=== PATIENT | female | born 1960 | race Caucasian/White ===

== ENCOUNTER 2017-02-19 17:33 | Emergency (ER) | payer BC, OTHER ==
--- NOTE | 2017-02-19 18:13 | ERNOTE ---
Lower Extremity HPI - Narrative Date of Service: 02/19/17 - General Lower Extremities Pain: ankle: right Time Seen by Provider: 02/19/17 17:49 Source: patient Exam Limitations: no limitations - Immun/Allergies/Home Medications Immunizations: IMMUNIZATION HX Immunizations Up to Date Yes History of Influenza Vaccine Yes Hx Pneumococcal Vaccination No Allergies/Adverse Reactions: Allergies Allergy/AdvReac Type Severity Reaction Status Date / Time adhesive AdvReac Other Verified 02/19/17 17:51 Home Medications: HOME MEDICATIONS Meloxicam [Mobic] 7.5 mg PO DAILY #14 tab 02/19/17 [Last Taken Unknown] Omeprazole 40 mg PO DAILY 02/19/17 [Last Taken Unknown] Sucralfate [Carafate] 1 gm PO QID 02/19/17 [Last Taken Unknown] Tamoxifen Citrate 20 mg PO DAILY 02/19/17 [Last Taken Unknown] - History of Present Illness Narrative: Pt. comes in with c/o R ankle and foot swelling for a week. Pt. denies any injury but has had treatment for Breast CA and multiple recent surgical procedures. Pt. denies any SOB, CP, fever, numbness or tingling. Pt. states that she has been using vicodin, Tylenol, lidocaine rub and heat that makes the pain tolerable but states that ambulation exacerbates the pain. Review of Systems - Review of Systems Constitutional: Present: no symptoms reported. Absent: recent illness, fever, chills, weakness, fatigue, malaise EYE: Present: no symptoms reported ENT: Present: no symptoms reported Respiratory: Present: no symptoms reported. Absent: shortness of breath, cough , wheezing Cardiology: Present: no symptoms reported. Absent: chest pain, palpitations, edema Gastrointestinal/Abdominal: Present: no symptoms reported. Absent: nausea, vomiting, diarrhea, abdominal pain Genitourinary: Present: no symptoms reported Musculoskeletal: Present: joint pain - R ankle, joint swelling - R ankle. Absent: back pain Skin: Present: no symptoms reported. Absent: rash, change in hair/nails Neurological: Present: no symptoms reported. Absent: headache, dizziness/light- headedness, numbness, tingling All Other Systems: All systems neg except as marked - Patient's Past Medical History Patient History - Medical: No pertinent hx Patient History - Cardiac/Respiratory: No pertinent hx Patient History - Cancer: Breast Patient History - Surgical Procedures: Cancer Surgery, Hysterectomy, Other - Social History Living Situations: home Abuse History: No History of abuse Psych History: No pertinent hx Smoking Status: Never smoker Have you smoked in the past 12 months: No Do you dip or chew tobacco: No Smoking Stop Date: 02/19/07 Initiate information on Smoking Cessation: No Alcohol Use: rarely Drug Use: none - Immunizations Immunizations Up to Date: Yes Hx Pneumococcal Vaccination: No History of Influenza Vaccine: Yes Physical Exam - Physical Exam General Appearance: Present: wd/wn, alert, no apparent distress Head Exam: Present: normal inspection, no evidence of injury Eye Exam: Normal inspection: bilateral, PERRL: bilateral, EOMI: bilateral Respiratory: Present: no respiratory distress, normal breath sounds, no accessory muscle use, chest nontender, lungs clear. Absent: crackles, rales, rhonchi, wheezing Cardiovascular/Chest: Present: regular rate, rhythm, no murmur, normal peripheral pulses. Absent: gallop/S3, gallop/S4, friction rub, chest tenderness Extremity Exam: Present: pedal edema - +2 RLE, extremity edema - +2 RLE, other - Dorsal Ankle and foot tenderness and lateral distal fibula. Absent: calf tenderness Neurological Exam: Present: alert, oriented, normal mood/affect, no motor/ sensory deficits Skin Exam: Present: normal color, warm/dry. Absent: pallor, skin rash ED Progress - Date and Time Seen: Date and Time: 02/19/17 19:54 Feel that these symptoms are likely related to phlebitis including elevated D dimer. Will have pt. wear compression stockings and start on Meloxicam which could cause worsening gastritis so will encourage pt. to continue carafate and omeprazole 02/19/17 19:59 - Results and Orders Patient's Lab Results:: I have reviewed the patient's lab results. - Vital Signs Patient's Vital Signs:: I have reviewed the patient's vital signs. Vital Signs: Vital Signs 02/19/17 02/19/17 17:40 17:58 Temperature 36.7 C Pulse Rate 84 Respiratory 20 Rate Blood Pressure 151/89 O2 Sat by Pulse 97 Oximetry - CT/Ultrasound CT/Ultrasound Narrative: US negative for DVT - Progress/Reassessment Chief Complaint: Ankle Injury/ Pain Progress:: Unchanged Departure Clinical Impression: Phlebitis - Departure Disposition: Home self-care Condition: Good Instructions: Phlebitis, [id number] Additional Instructions: Please follow up with Dr Gatica in 1-2 days. Wear compression stockings everyday and continue carafate 4 times a day and Omeprazole as ordered. Referrals: Suzanne Gatica MD [Primary Care Provider] - Prescriptions: Meloxicam [Mobic] 7.5 mg PO DAILY #14 tab
[2017-02-19 18:19] LABS: Hematocrit 38.7 % (37.0-47.0); Hemoglobin 12.5 gm/dL (12.5-16.0); Mean Corpuscular Hemoglobin 28.4 pg (27-31); Mean Corpuscular Hgb Conc 32.3 g/dl (32-36); Neutrophil # 3.2 K/mm3 (1.3-6.0); Neutrophil % 46.8 % (42-75.0); Platelet Count 225 K/mm3 (150-450); White Blood Count 6.8 K/mm3 (4.0-10.5)
[2017-02-19 18:49] LABS: Albumin * 3.4 gm/dl (3.4-5.0); Anion Gap 11.4 mmol/L (6.8-13.8); BUN/Creatinine Ratio 23.3 (9.0-21.6); Bilirubin, Total 0.2 mg/dL (0.0-1.1); Ca. Corrected For Albumin 9.2 mg/dL (8.4-10.2); Carbon Dioxide 27.5 mmol/L (24-32.6); Potassium 3.9 mmol/L (3.4-4.6); Total Protein 7.3 gm/dL (6.2-8.2)
[2017-02-19 20:12] VITALS: BP 133/76
== END 2017-02-19 20:10 | disposition home or self-care (01) ==
LOC: ER 17:33
DX: I80.3 Phlebitis and thrombophlebitis of lower extremities, unspecified (principal); Z85.3 Personal history of malignant neoplasm of breast